=== PATIENT | female | born 1950 | race American Indian/Alaskan Native ===

== ENCOUNTER 2016-06-25 10:25 | Emergency (ER) | payer MEDICARE ==
[2016-06-25 10:53] VITALS: BP 100/54
[2016-06-25] MEDS ORDERED: DUONEB 0.5 MG-3 MG/3 ML SOLN IH ONE (11:46)
--- NOTE | 2016-06-25 11:49 | Emergency Department Report ---
Chief Complaint: Adult Asthma Stated Complaint: DORA Time Seen by Provider: 06/25/16 11:45 - HPI History of Present Illness: 66-year-old female comes in reporting she needs a breathing treatment. Denies any nausea vomiting fever chills. She has a past medical history of asthma - Exam Vital Signs: Vital Signs 06/25/16 10:49 Temperature 98.4 F Pulse Rate 91 H Respiratory 22 Rate Blood Pressure 100/54 O2 Sat by Pulse 97 Oximetry Physical Exam: Patient alert and oriented 3 respiratory expiratory wheezes throughout. MSE screening note: Focused history and physical exam performed. Due to findings the following was ordered: He been evaluated for order a DuoNeb respiratory care. Patient be evaluated in fast track. ED Disposition for MSE Condition: Stable
== END 2016-06-25 14:13 | disposition left against medical advice (07) ==
LOC: ED 10:25
DX: J45.909 Unspecified asthma, uncomplicated (principal); Z53.21 Procedure and treatment not carried out due to patient leaving prior to being seen by health care provider
CPT/HCPCS: 94640

== ENCOUNTER 2016-06-26 12:36 | Inpatient (IN) | payer MEDICARE, OTHER ==
--- NOTE | 2016-06-26 13:24 | XRay Report ---
Single view chest: Compared to 10/30/15. History: Shortness of breath. Findings: Cardiomegaly. Trachea is midline. Mild pulmonary vascular congestion with airspace opacities left perihilar area, left lower lobe and right lower lobe. No pleural effusion. Impression: Pulmonary edema or bilateral pneumonia.
[2016-06-26 13:31] LABS: Basophils % (Auto) 0.4 % (0.0-1.8); Hematocrit 29.8 % (30.3-42.9); Hemoglobin 9.7 gm/dl (10.1-14.3); Mean Corpuscular HGB Conc 33 % (30-34); Mean Corpuscular Hemoglobin 28 pg (28-32); Mean Corpuscular Volume 85 fl (79-97); Platelet Count 316 K/mm3 (140-440); Red Cell Distribution Width 16.2 % (13.2-15.2); White Blood Count 15.2 K/mm3 (4.5-11.0)
--- NOTE | 2016-06-26 14:00 | Emergency Department Report ---
HPI - General Chief Complaint: Dyspnea/Respdistress Time Seen by Provider: 06/26/16 13:40 - HPI HPI: Room 19 The patient is a 66-year-old female presenting with a chief complaint of shortness of breath. The patient appeared lethargic and is unable to provide history. Per staff at the large the patient was reported to have difficulty breathing for the past 2 days. The patient was found to be lethargic and had a room air sat of 70% per EMS. The patient was administered albuterol, given aspirin and placed on BiPAP from EMS. In the ED the patient does not provide a history because she keeps falling asleep prior to transfer. Patient will awaken briefly with tactile stimuli but then trails off and goes back to sleep Location: Mental status, lungs Duration: [see above] Quality: Shortness of breath Severity: [see above] Modifying factors: [see above] Context: [see above] Mode of transportation: [not driving] ED Past Medical Hx - Past Medical History Hx Hypertension: Yes Hx GERD: Yes Hx Psychiatric Treatment: Yes (bipolar / DEPRESSION) Hx Asthma: Yes (? Bronchitis/? Asthma per patient) Hx COPD: Yes (no home O2) Additional medical history: fibromyalgia. HIGH CHOLESTEROL - Surgical History Past Surgical History?: No Additional Surgical History: back surgery 3 yrs ago , neck surgery. TONSILLECTOMY - Social History Smoking Status: Unknown if ever smoked Substance Use Type: None - Medications Home Medications: Home Medications Medication Instructions Recorded Confirmed Last Taken Type Gabapentin 300 mg PO QDAY 03/04/14 06/26/16 Unknown History Albuterol [Proventil] 2 mg PO TID 11/05/14 06/26/16 Unknown History Gabapentin [Neurontin] 100 mg PO Q8H 11/05/14 06/26/16 Unknown History Ipratropium/Albuterol Sulfate 1 spray IH QID 11/05/14 06/26/16 Unknown History [Combivent Respimat] Metoprolol [Lopressor] 25 mg PO BID 11/05/14 06/26/16 Unknown History Rosuvastatin (Nf) [Crestor] 5 mg PO QHS 11/05/14 06/26/16 Unknown History Carvedilol [Coreg] 25 mg PO BID 07/08/15 06/26/16 Unknown History ALBUTEROL Inhaler [ProAir HFA 2 puff IH QID PRN #1 inhalation 10/25/15 06/26/16 Unknown Rx Inhaler] Esomeprazole Magnesium [NexIUM] 40 mg PO QDAY 10/25/15 06/26/16 Unknown History FLUoxetine [PROzac] 20 mg PO QDAY 10/25/15 06/26/16 Unknown History QUEtiapine [SEROquel] 200 mg PO QHS 10/25/15 06/26/16 Unknown History amLODIPine [Norvasc] 10 mg PO DAILY 10/25/15 06/26/16 Unknown History cloNIDine [Catapres] 0.1 mg PO QHS 10/25/15 06/26/16 Unknown History lamoTRIgine [LaMICtal] 25 mg PO BID 10/25/15 06/26/16 Unknown History predniSONE [Deltasone] 3 tab PO QDAY #15 tab 10/25/15 06/26/16 Unknown Rx ALBUTEROL Inhaler [ProAir HFA 2 puff IH QID PRN #1 inhalation 10/30/15 06/26/16 Unknown Rx Inhaler] ED Review of Systems ROS: Stated complaint: DORA Other details as noted in HPI Comment: Unobtainable due to pts medical conditions Physical Exam - Physical Exam Vital Signs: Vital Signs 06/26/16 06/26/16 12:42 13:24 Temperature 97.5 F L Pulse Rate 81 87 Respiratory 22 19 Rate Blood Pressure 89/64 104/81 [Left] O2 Sat by Pulse 95 96 Oximetry Physical Exam: GENERAL: The patient is well-developed well-nourished female sleeping on stretcher receiving BiPAP not appear to be in acute distress. [] HEENT: Normocephalic. Atraumatic. Extraocular motions are intact. NECK: Supple. Trachea midline CHEST/LUNGS: There is no respiratory distress noted. HEART/CARDIOVASCULAR: Regular. There is no tachycardia. There is no gallop rub or murmur. ABDOMEN: Abdomen is soft, nontender. Patient has normal bowel sounds. There is no abdominal distention. SKIN: There is no rash. There is 1+ bilateral lower extremity pitting edema. There is no diaphoresis. NEURO: The patient is asleep but awakens briefly to tactile stimuli. Patient falls back to sleep immediately without stimuli MUSCULOSKELETAL: There is no evidence of acute injury. ED Course Vital Signs 06/26/16 06/26/16 12:42 13:24 Temperature 97.5 F L Pulse Rate 81 87 Respiratory 22 19 Rate Blood Pressure 89/64 104/81 [Left] O2 Sat by Pulse 95 96 Oximetry ED Medical Decision Making - Lab Data Result diagrams: 06/26/16 13:16 06/26/16 13:16 Laboratory Tests 06/26/16 06/26/16 06/26/16 13:16 13:16 13:16 WBC 15.2 H RBC 3.50 L Hgb 9.7 L Hct 29.8 L MCV 85 MCH 28 MCHC 33 RDW 16.2 H Plt Count 316 Lymph % (Auto) 12.7 L [place] % (Auto) 5.4 Eos % (Auto) 2.0 Baso % (Auto) 0.4 Lymph # 1.9 [place] # 0.8 Eos # 0.3 Baso # 0.1 Seg Neutrophils % 79.5 H Seg Neutrophils # 12.1 H POC ABG pH POC ABG pCO2 POC ABG pO2 POC ABG HCO3 POC ABG Total CO2 POC ABG O2 Sat POC ABG Base Excess FiO2 Sodium 139 Potassium 4.1 Chloride 103.0 Carbon Dioxide 21 L Anion Gap 19 BUN 17 Creatinine 1.4 H Estimated GFR 46 BUN/Creatinine Ratio 12.14 Glucose 103 H Calcium 8.7 Troponin T < 0.010 NT-Pro-B Natriuret Pep 343.2 06/26/16 14:06 WBC RBC Hgb Hct MCV MCH MCHC RDW Plt Count Lymph % (Auto) [place] % (Auto) Eos % (Auto) Baso % (Auto) Lymph # [place] # Eos # Baso # Seg Neutrophils % Seg Neutrophils # POC ABG pH 7.346 L POC ABG pCO2 43.4 POC ABG pO2 71 L POC ABG HCO3 23.7 POC ABG Total CO2 25 POC ABG O2 Sat 93 POC ABG Base Excess -2 FiO2 50 Sodium Potassium Chloride Carbon Dioxide Anion Gap BUN Creatinine Estimated GFR BUN/Creatinine Ratio Glucose Calcium Troponin T NT-Pro-B Natriuret Pep - EKG Data -: EKG Interpreted by Me EKG shows normal: sinus rhythm Rate: normal - EKG Data When compared to previous EKG there are: previous EKG unavailable Interpretation: normal EKG - Radiology Data Radiology results: image reviewed (chest x-ray) interpreted by me: Chest x-ray bibasilar haziness. Left upper lobe haziness (CHF versus pneumonia) - Differential Diagnosis CHF, pneumonia Critical care attestation.: If time is entered above; I have spent that time in minutes in the direct care of this critically ill patient, excluding procedure time. ED Disposition Clinical Impression: Acute respiratory failure, Bilateral pneumonia, Shortness of breath, Leukocytosis Disposition: OP ADMITTED IP TO THIS HOSP Is pt being admited?: Yes Does the pt Need Aspirin: Yes Condition: Serious Instructions: Bacterial Pneumonia (ED) Referrals: PRIMARY CARE, [Primary Care Provider] - 3-5 Days Time of Disposition: 15:12 (hospitalist notified)
[2016-06-26 14:03] LABS: BUN/Creatinine Ratio 12.14; Blood Urea Nitrogen 17 mg/dL (7-17); Calcium 8.7 mg/dL (8.4-10.2); Carbon Dioxide 21 mmol/L (22-30); Glucose 103 mg/dL (65-100); Potassium 4.1 mmol/L (3.6-5.0); Sodium 139 mmol/L (137-145)
[2016-06-26 14:07] LABS: Anion Gap 19 mmol/L
[2016-06-26 15:04] LABS: ISTAT Base Excess -2; ISTAT HCO3 23.7; ISTAT PCO2 43.4 (35-45); ISTAT PH 7.346 (7.35-7.45); ISTAT PO2 71 (80-105); ISTAT SO2 93; ISTAT TCO2 25
[2016-06-26] MEDS ORDERED: DUONEB 0.5 MG-3 MG/3 ML SOLN IH ONE (16:11)
--- NOTE | 2016-06-26 18:12 | Consultation ---
History of Present Illness Consult date: 06/26/16 Reason for consult: dyspnea, cough, hypoxemia, pneumonia History of present illness: This is 66 year old female Obese came to the emergency room at [facility] with a complaint of shortness of breath for 2 days.Patient lethergic and O2 satuaration running in low 70,s.Patient unable to give much history. Patient placed on BIPAP. Both respiratory and mental status slightly improved. Patient easily arousable.Patient given aerosol treatments and admitted to the Telemetry.Patient has history of Asthma, hypertension, GERD,Hypercholesteremia, fibromyalgia and BIpolar.Patient surgical history, Back surgery,Neck surgery and Tonsillectomy. Allergic to IVP Dye and Lisonipril.Patients smoking history, alcohol history, work history is not known at this time. Patient presently resting on BIPAP. Hemodynamically stable. Past History Past Medical History: GERD, hypertension, hyperlipidemia, other (Asthma) Past Surgical History: tonsillectomy, Other (Back and neck surgery.) Medications and Allergies Allergies Allergy/AdvReac Type Severity Reaction Status Date / Time Iodinated Contrast Media - Allergy Swelling Verified 06/25/16 10:47 IV Dye lisinopril Allergy Angioedema Verified 06/25/16 10:47 Home Medications Medication Instructions Recorded Confirmed Last Taken Type Gabapentin 300 mg PO QDAY 03/04/14 06/26/16 Unknown History Albuterol [Proventil] 2 mg PO TID 11/05/14 06/26/16 Unknown History Gabapentin [Neurontin] 100 mg PO Q8H 11/05/14 06/26/16 Unknown History Ipratropium/Albuterol Sulfate 1 spray IH QID 11/05/14 06/26/16 Unknown History [Combivent Respimat] Metoprolol [Lopressor] 25 mg PO BID 11/05/14 06/26/16 Unknown History Rosuvastatin (Nf) [Crestor] 5 mg PO QHS 11/05/14 06/26/16 Unknown History Carvedilol [Coreg] 25 mg PO BID 07/08/15 06/26/16 Unknown History ALBUTEROL Inhaler [ProAir HFA 2 puff IH QID PRN #1 inhalation 10/25/15 06/26/16 Unknown Rx Inhaler] Esomeprazole Magnesium [NexIUM] 40 mg PO QDAY 10/25/15 06/26/16 Unknown History FLUoxetine [PROzac] 20 mg PO QDAY 10/25/15 06/26/16 Unknown History QUEtiapine [SEROquel] 200 mg PO QHS 10/25/15 06/26/16 Unknown History amLODIPine [Norvasc] 10 mg PO DAILY 10/25/15 06/26/16 Unknown History cloNIDine [Catapres] 0.1 mg PO QHS 10/25/15 06/26/16 Unknown History lamoTRIgine [LaMICtal] 25 mg PO BID 10/25/15 06/26/16 Unknown History predniSONE [Deltasone] 3 tab PO QDAY #15 tab 10/25/15 06/26/16 Unknown Rx ALBUTEROL Inhaler [ProAir HFA 2 puff IH QID PRN #1 inhalation 10/30/15 06/26/16 Unknown Rx Inhaler] Review of Systems All systems: negative Physical Examination Vital signs: Vital Signs Temp Pulse Resp BP Pulse Ox 97.5 F L 81 22 89/64 95 06/26/16 12:42 06/26/16 12:42 06/26/16 12:42 06/26/16 12:42 06/26/16 12:42 General appearance: no acute distress, lethargic, other (Resting on BIPAP.) Eyes: non-icteric ENT: oropharynx moist Neck: supple, no JVD Ascultation: Bilateral: diminished breath sounds Cardiovascular: regular rate and rhythm Gastrointestinal: normoactive bowel sounds, soft, non-tender Integumentary: normal Extremities: no cyanosis, no edema Musculoskeletal: no deformities Gait: other (Can not assess at this time.) non-focal exam, pupils equal and round, CN II-XII normal depressed Results - Laboratory Findings CBC and BMP: 06/26/16 13:16 06/26/16 13:16 ABG POC ABG pH 7.346 (7.35-7.45) L 06/26/16 14:06 POC ABG pCO2 43.4 (35-45) 06/26/16 14:06 POC ABG pO2 71 (80-105) L 06/26/16 14:06 POC ABG HCO3 23.7 06/26/16 14:06 POC ABG Total CO2 25 06/26/16 14:06 POC ABG O2 Sat 93 06/26/16 14:06 - Diagnostic Findings Chest x-ray: report reviewed (pulmonary edema and bilateral pneumonia), image reviewed Assessment and Plan This is 66 year old female Obese came to the emergency room at [facility] with a complaint of shortness of breath for 2 days.Patient lethergic and O2 satuaration running in low 70,s.Patient unable to give much history. Patient placed on BIPAP. Both respiratory and mental status slightly improved. Patient easily arousable.Patient given aerosol treatments and admitted to the Telemetry.Patient has history of Asthma, hypertension, GERD,Hypercholesteremia, fibromyalgia and BIpolar.Patient surgical history, Back surgery,Neck surgery and Tonsillectomy. Allergic to IVP Dye and Lisonipril.Patients smoking history, alcohol history, work history is not known at this time. Patient presently resting on BIPAP. Hemodynamically stable. - Patient Problems (1) Acute respiratory failure Current Visit: Yes Status: Acute Plan to address problem: Continue BIPAP Albuterol/atrovent aerosol treatments q 6 hours. Continue solumedral. Recommend s/c Lovenox. Continue Protonix. (2) Bilateral pneumonia Current Visit: Yes Status: Acute Plan to address problem: Continue Zosyn. (3) Bronchial asthma Current Visit: Yes Status: Acute Plan to address problem: Albuterol/atrovent aerosol treatments q 6 hours. Continue solumedral. (4) Obesity (BMI 30-39.9) Current Visit: Yes Status: Acute Plan to address problem: Nutritonal consultation for weight reduction diet. (5) Sleep apnea Current Visit: Yes Status: Acute Plan to address problem: Continue BIPAP. Sleep study as outpatient.
[2016-06-26] MEDS ORDERED: PROAIR IH PRN (18:53)
[2016-06-26] MEDS ORDERED: TYLENOL PO PRN (18:55)
[2016-06-26] MEDS ORDERED: DULCOLAX PR PRN (18:55)
[2016-06-26] MEDS ORDERED: AMBIEN PO PRN (18:55)
[2016-06-26] MEDS ORDERED: MILK OF MAGNESIA PO PRN (18:55)
[2016-06-26] MEDS ORDERED: DILAUDID IV PRN (18:55)
[2016-06-26] MEDS ORDERED: ZOFRAN IV PRN (18:55)
[2016-06-26] MEDS ORDERED: DUONEB 0.5 MG-3 MG/3 ML SOLN IH PRN (18:59)
[2016-06-26] MEDS ORDERED: PROVENTIL IH PRN ×2 (19:21→19:33)
[2016-06-26] MEDS: DUONEB 0.5 MG-3 MG/3 ML SOLN IH SCH (20:45)
[2016-06-26] MEDS ORDERED: PEPCID IV SCH (22:00)
[2016-06-26] MEDS ORDERED: NON-FORMULARY (Ipratropium/Albuterol Sulfate [Combivent Respimat] 1 SPRAY) IH SCH (22:00)
[2016-06-26] MEDS: ZOSYN/NS 4.5GM/100ML 100 ML IV SCH (22:44)
[2016-06-26] MEDS: D5NS 1,000 ML IV SCH (22:44)
[2016-06-26] MEDS: ASPIRIN PO SCH (22:47)
[2016-06-26] MEDS: PROzac PO SCH (22:47)
[2016-06-26] MEDS: NEURONTIN PO SCH (22:47)
[2016-06-26] MEDS: LaMICtal PO SCH (22:47)
[2016-06-27] MEDS: DUONEB 0.5 MG-3 MG/3 ML SOLN IH SCH ×4 (03:05→20:02)
[2016-06-27] MEDS: NEURONTIN PO SCH ×2 (06:49→10:52)
[2016-06-27] MEDS: ZOSYN/NS 4.5GM/100ML 100 ML IV SCH ×3 (06:52→21:49)
[2016-06-27 07:20] LABS: Albumin 3.6 g/dL (3.9-5); BUN/Creatinine Ratio 14.61; Bilirubin,Total 0.2 mg/dL (0.1-1.2); Calcium 8.9 mg/dL (8.4-10.2); Chloride 103.6 mmol/L (98-107); Total Protein 7.3 g/dL (6.3-8.2)
[2016-06-27 07:24] LABS: Potassium 4.5 mmol/L (3.6-5.0)
[2016-06-27 07:46] LABS: Hemoglobin 9.3 gm/dl (10.1-14.3); Mean Corpuscular HGB Conc 31 % (30-34); Mean Corpuscular Hemoglobin 27 pg (28-32); Mean Corpuscular Volume 85 fl (79-97); Platelet Count 337 K/mm3 (140-440); Red Blood Count 3.53 M/mm3 (3.65-5.03); Red Cell Distribution Width 16.1 % (13.2-15.2); White Blood Count 16.1 K/mm3 (4.5-11.0)
--- NOTE | 2016-06-27 08:22 | Event Note ---
Date: 06/26/16 see in reports
[2016-06-27 08:37] LABS: Basophils % (Manual) 0 % (0.0-1.8); Blastocytes % (Manual) 0 %; Eosinophils % (Manual) 0 % (0.0-4.3); Total Cells Counted Percent 0
[2016-06-27 08:38] LABS: Anisocytosis Few; Diff Status Complete
--- NOTE | 2016-06-27 09:42 | History and Physical Report ---
CHIEF COMPLAINT: Increasing shortness of breath of 2 days' duration. HISTORY OF PRESENT ILLNESS: The patient is a 66-year-old female who presents with increasing shortness of breath for two days. The patient was found to be lethargic with saturations of 70% at home. The patient was administered albuterol and was placed on BiPAP by EMS. In the ER, the patient is lethargic and falling asleep despite of the BiPAP. PAST MEDICAL HISTORY: Significant for hypertension, COPD on home oxygen, depression, bronchitis, asthma, fibromyalgia, hyperlipidemia. PAST SURGICAL HISTORY: Back surgery 3 years ago, neck surgery, and tonsillectomy. SOCIAL HISTORY: He used to be a smoker in the past. CURRENT MEDICATIONS: Gabapentin 300 mg once a day, albuterol 2 mg t.i.d., DuoNebs four times a day, Combivent Respimat 1 spray q.i.d. p.r.n., Crestor 5 mg daily, Prozac 20 mg p.o. daily, Seroquel 200 mg p.o. at bedtime, amlodipine 10 mg p.o. daily, clonidine 0.1 p.o. at bedtime, Lamictal 25 mg p.o. b.i.d., prednisone tapering dose, albuterol inhaler 2 puffs q.i.d. FAMILY HISTORY: Significant for hypertension. REVIEW OF SYSTEMS: CONSTITUTIONAL: No fever, no chills. No weight loss, no weight gain. HEENT: No sore throat. No postnasal drip. CARDIOVASCULAR AND RESPIRATORY: Increasing shortness of breath, wheezing, and lethargy present. Low saturations present. GASTROINTESTINAL: No nausea, no vomiting, no diarrhea. GENITOURINARY: No dysuria, no flank pain. MUSCULOSKELETAL: No joint pains. CENTRAL NERVOUS SYSTEM: No syncope, no seizures, altered sensorium, lethargic. SKIN: No rashes. PSYCHIATRIC: Depressed. A 14-point review of systems otherwise negative other than increasing shortness of breath and lethargy. PHYSICAL EXAMINATION: GENERAL: Elderly female, on BiPAP machine, alert at the time of my examination. VITAL SIGNS: Blood pressure is 89/64 and repeat was 104/81, temperature is 97.5, pulse is 81, respirations 22. HEENT: Unremarkable. Pupils equal and reactive. NECK: Supple, no lymphadenopathy, no thyromegaly. Accessory muscles of respiration are prominent. LUNGS: Bilateral rhonchi present. Decreased air entry. CARDIOVASCULAR: S1, S2 heard. No gallop, no murmur, no rub. Apical impulse in the left fifth intercostal space and midclavicular line. ABDOMEN: Soft and benign. No hepatosplenomegaly. No guarding, no rigidity. Hernial orifices are normal. EXTREMITIES: Good pedal pulses. No pedal edema. CENTRAL NERVOUS SYSTEM: Lethargic, alert, and oriented. NEUROLOGIC: No focal deficits. SKIN: Normal. LABORATORY DATA: White count is 15,200, H and H is 9.7 and 29.2, BUN and creatinine 17 and 1.4. BNP is 343. ABG 7.346, pCO2 of 43, bicarbonate of 23, pO2 of 71, FiO2 of 50. ASSESSMENT AND PLAN: 1. Acute respiratory failure, on BiPAP machine. DuoNebs q.6 round the clock q.3 p.r.n., IV Solu-Medrol at 125 q.8, and IV Levaquin 750 mg q.24. 2. Hypotension, better with the IV fluids, continue IV fluids. 3. Hypertension, Coreg for the time being. 4. Hyperlipidemia. Continue Crestor 5 mg p.o. daily. 5. Peripheral neuropathy, continue gabapentin 100 mg p.o. q.8. 6. Depression. Continue fluoxetine and Seroquel. 7. Deep venous thrombosis prophylaxis, Lovenox 40 mg subcutaneous daily. In summary, the patient has acute respiratory failure, COPD exacerbation, and hypertension, now hypotension. PROGNOSIS: Fair. We will admit to telemetry. JOB# [id number] JARVIS/WILLIAM LOYA
--- NOTE | 2016-06-27 09:46 | Admit Criteria Form ---
Admission Criteria Documentation: RESPIRATORY FAILURE GRG Clinical Indications for Admission to Inpatient Care (Place 'X' for any and all applicable criteria): Hospital admission is needed for appropriate care of the patient because of acute respiratory failure or insufficiency as indicated by ANY ONE of the following(1)(2)(3)(4)(5)(6)(7)(8): [X]I. Mechanical ventilation needed (acute invasive or noninvasive) [X]II. Severe ventilation deficit as indicated by ANY ONE of the following (9) [X ]a) Respiratory acidosis (pH less than 7.32 and partial pressure of carbon dioxide greater than 40 mm Hg (5.3 kPa)) [ ]b) Partial pressure of carbon dioxide greater than 44 mm Hg (5.9 kPa ) (new) [ ]c) Airflow measurements less than 25% of predicted (eg, peak expiratory flow rate less than 100 L/minute) [ ]d) Forced vital capacity less than 15 mL/kg of ideal body weight, or 50% decrease in vital capacity from baseline [ ]III. Noncardiac pulmonary edema not resolving with rapid emergency treatment (8) [X]IV. Severe respiratory distress as indicated by ANY ONE of the following: [ ]a) Severe tachypnea (respiratory rate greater than 30, greater than 45 for 6-month-old, greater than 60 for ) [X ]b) Severe hypoxemia (partial pressure of oxygen less than 50 mm Hg (6.7 kPa) on greater than 50% oxygen or partial pressure of oxygen to FIO2 ratio less than 200) [X ]c) Mental status deterioration from respiratory disease [ ]V. Airway obstruction or inadequate protection [A](10)(11) The original [employer] content created by [employer] has been revised. The portions of the content which have been revised are identified through the use of italic text or in bold, and [employer] has neither reviewed nor approved the modified material. All other unmodified content is copyright [employer]. Please see references footnoted in the original [employer] edition 2016 Admission Criteria Met: Yes
[2016-06-27] MEDS ORDERED: NON-FORMULARY (Esomeprazole Magnesium [Nexium] 40 MG) PO SCH (10:00)
--- NOTE | 2016-06-27 10:02 | Progress Note ---
Assessment and Plan (1) Acute respiratory failure Current Visit: Yes Status: Acute Plan to address problem: - Continue BIPAP (But qhs & prn daytime now) - Albuterol/atrovent aerosol treatments q 6 hours. - Continue solumedrol. - oxygen therapy to keep sats > 92% (2) Bilateral pneumonia Current Visit: Yes Status: Acute Plan to address problem: - Continue Zosyn. (3) Bronchial asthma Current Visit: Yes Status: Acute Plan to address problem: - Albuterol/atrovent aerosol treatments q 6 hours. - Continue solumedrol. (4) Obesity (BMI 30-39.9) Current Visit: Yes Status: Acute Plan to address problem: - Nutritonal consultation for weight reduction diet. (5) Sleep apnea Current Visit: Yes Status: Acute Plan to address problem: - Continue BIPAP qhs/while asleep. - Sleep study as outpatient. Subjective Date of service: 06/27/16 Principal diagnosis: Acute Hypoxemic Resp Failure Interval history: Seen and examined at bedside; 24 hour events reviewed; nursing and respiratory care staff consulted; no adverse overnight events reported to me; resting in bed ; doing better; tolerated BIPAP; no emesis or overt aspiration Objective Vital Signs - 12hr 06/27/16 06/27/16 06/27/16 00:27 03:46 05:15 Temperature 97.6 F 98.2 F Pulse Rate 86 Pulse Rate [ 98 H 88 Radial] Pulse Rate [ Throughout] Respiratory 20 18 Rate Respiratory Rate [ Throughout] Blood Pressure 113/61 131/89 [Left Arm] O2 Sat by Pulse 98 100 Oximetry 06/27/16 06/27/16 06/27/16 08:20 08:24 08:43 Temperature 97.4 F L Pulse Rate 101 H Pulse Rate [ 95 H Radial] Pulse Rate [ 101 H Throughout] Respiratory 16 20 Rate Respiratory 16 Rate [ Throughout] Blood Pressure 159/87 [Left Arm] O2 Sat by Pulse 100 99 Oximetry Constitutional: no acute distress, lethargic, other (Resting on BIPAP.) Eyes: non-icteric ENT: oropharynx moist Neck: supple, no JVD Ascultation: Bilateral: diminished breath sounds Cardiovascular: regular rate and rhythm Gastrointestinal: normoactive bowel sounds, soft, non-tender, non-distended Integumentary: normal Extremities: no cyanosis, no edema, pulses normal Neurologic: non-focal exam, pupils equal and round, CN II-XII normal, motor strength normal and Psychiatric: mood appropriate, affect normal CBC and BMP: 06/28/16 08:55 06/29/16 07:14 ABG, PT/INR, D-dimer: ABG POC ABG pH 7.346 (7.35-7.45) L 06/26/16 14:06 POC ABG pCO2 43.4 (35-45) 06/26/16 14:06 POC ABG pO2 71 (80-105) L 06/26/16 14:06 POC ABG HCO3 23.7 06/26/16 14:06 POC ABG Total CO2 25 06/26/16 14:06 POC ABG O2 Sat 93 06/26/16 14:06 Abnormal lab findings: Abnormal Labs 06/27/16 06/27/16 06:15 06:15 WBC 16.1 H RBC 3.53 L Hgb 9.3 L Hct 30.0 L MCH 27 L RDW 16.1 H Seg Neuts % (Manual) 85.0 H Lymphocytes % (Manual) 2.0 L Seg Neutrophils # Man 13.7 H Lymphocytes # (Manual) 0.3 L Carbon Dioxide 21 L BUN 19 H Creatinine 1.3 H Glucose 151 H Albumin 3.6 L
[2016-06-27] MEDS: PROTONIX PO SCH (10:52)
[2016-06-27] MEDS: ASPIRIN PO SCH (10:52)
[2016-06-27] MEDS: PROzac PO SCH (10:52)
[2016-06-27] MEDS: LaMICtal PO SCH ×2 (10:52→21:49)
[2016-06-27] MEDS: LOVENOX SUB-Q SCH (10:53)
[2016-06-27] MEDS: D5NS 1,000 ML IV SCH (16:45)
--- NOTE | 2016-06-27 16:47 | Progress Note ---
Assessment and Plan Assessment and plan: Acute hypoxic respiratory failure * Continue BIPAP * Albuterol/atrovent aerosol treatments q 6 hours. * Continue solumedral. Bilateral community-acquired pneumonia * Continue Zosyn. Acute exacerbation of severe persistent Bronchial asthma * Albuterol/atrovent aerosol treatments q 6 hours. * Continue solumedral. Obesity (BMI 30-39.9) * Nutritonal consultation for weight reduction diet. Sleep apnea, likely * Need outpatient sleep study h/o depression * continue prozac History Interval history: Patient seen and examined. Medical records and medication list reviewed. No acute event overnight noted by the RN. Patient currently on BiPAP Hospitalist Physical - Physical exam Narrative exam: GENERAL: obese AAF lying on bed with BIPAP. appears sleepy HEENT: Normocephalic. Atraumatic. No conjunctival congestion or icterus. Patient has dry mucous membranes. NECK: Supple. Trachea midline. CHEST/LUNGS: diminished BS auscultated bilaterally, on BiPAP. No wheezes crackles or rhonchi. HEART/CARDIOVASCULAR: Regular in rate and rhythm. S1 and S2 positive. ABDOMEN: Abdomen is soft, nontender. Patient has normal bowel sounds. SKIN: There is no rash. Warm and dry. NEURO: No focal motor deficit. MUSCULOSKELETAL: No joint effusion or tenderness. EXTRIMITY: No edema, no cyanosis or clubbing. - Constitutional Vitals: Temp Pulse Resp BP Pulse Ox 98.2 F 88 16 146/73 98 06/27/16 14:01 06/27/16 14:04 06/27/16 14:04 06/27/16 14:01 06/27/16 14:01 Results - Labs CBC & Chem 7: 06/28/16 08:55 06/28/16 08:55 Labs: Laboratory Last Values WBC 16.1 K/mm3 (4.5-11.0) H 06/27/16 06:15 RBC 3.53 M/mm3 (3.65-5.03) L 06/27/16 06:15 Hgb 9.3 gm/dl (10.1-14.3) L 06/27/16 06:15 Hct 30.0 % (30.3-42.9) L 06/27/16 06:15 MCV 85 fl (79-97) 06/27/16 06:15 MCH 27 pg (28-32) L 06/27/16 06:15 MCHC 31 % (30-34) 06/27/16 06:15 RDW 16.1 % (13.2-15.2) H 06/27/16 06:15 Plt Count 337 K/mm3 (140-440) 06/27/16 06:15 Lymph % (Auto) Sales & Service Associate 06/27/16 06:15 [place] % (Auto) Sales & Service Associate 06/27/16 06:15 Eos % (Auto) Sales & Service Associate 06/27/16 06:15 Baso % (Auto) Sales & Service Associate 06/27/16 06:15 Lymph # Sales & Service Associate 06/27/16 06:15 [place] # Sales & Service Associate 06/27/16 06:15 Eos # Sales & Service Associate 06/27/16 06:15 Baso # Sales & Service Associate 06/27/16 06:15 Add Manual Diff Complete 06/27/16 06:15 Total Counted 100 06/27/16 06:15 Seg Neutrophils % Sales & Service Associate 06/27/16 06:15 Seg Neuts % (Manual) 85.0 % (40.0-70.0) H 06/27/16 06:15 Band Neutrophils % 13.0 % 06/27/16 06:15 Lymphocytes % (Manual) 2.0 % (13.4-35.0) L 06/27/16 06:15 Reactive Lymphs % (Man) 0 % 06/27/16 06:15 Monocytes % (Manual) 0 % (0.0-7.3) 06/27/16 06:15 Eosinophils % (Manual) 0 % (0.0-4.3) 06/27/16 06:15 Basophils % (Manual) 0 % (0.0-1.8) 06/27/16 06:15 Metamyelocytes % 0 % 06/27/16 06:15 Myelocytes % 0 % 06/27/16 06:15 Promyelocytes % 0 % 06/27/16 06:15 Blast Cells % 0 % 06/27/16 06:15 Nucleated RBC % Not Reportable 06/27/16 06:15 Seg Neutrophils # Sales & Service Associate 06/27/16 06:15 Seg Neutrophils # Man 13.7 K/mm3 (1.8-7.7) H 06/27/16 06:15 Band Neutrophils # 2.1 K/mm3 06/27/16 06:15 Lymphocytes # (Manual) 0.3 K/mm3 (1.2-5.4) L 06/27/16 06:15 Abs React Lymphs (Man) 0.0 K/mm3 06/27/16 06:15 Monocytes # (Manual) 0.0 K/mm3 (0.0-0.8) 06/27/16 06:15 Eosinophils # (Manual) 0.0 K/mm3 (0.0-0.4) 06/27/16 06:15 Basophils # (Manual) 0.0 K/mm3 (0.0-0.1) 06/27/16 06:15 Metamyelocytes # 0.0 K/mm3 06/27/16 06:15 Myelocytes # 0.0 K/mm3 06/27/16 06:15 Promyelocytes # 0.0 K/mm3 06/27/16 06:15 Blast Cells # 0.0 K/mm3 06/27/16 06:15 WBC Morphology Not Reportable 06/27/16 06:15 Hypersegmented Neuts Not Reportable 06/27/16 06:15 Hyposegmented Neuts Not Reportable 06/27/16 06:15 Hypogranular Neuts Not Reportable 06/27/16 06:15 Smudge Cells Not Reportable 06/27/16 06:15 Toxic Granulation Not Reportable 06/27/16 06:15 Toxic Vacuolation Not Reportable 06/27/16 06:15 Dohle Bodies Not Reportable 06/27/16 06:15 Pelger-Huet Anomaly Not Reportable 06/27/16 06:15 Gordon Rods Not Reportable 06/27/16 06:15 Platelet Estimate Not Reportable 06/27/16 06:15 Clumped Platelets Not Reportable 06/27/16 06:15 Plt Clumps, EDTA Not Reportable 06/27/16 06:15 Large Platelets Not Reportable 06/27/16 06:15 Giant Platelets Not Reportable 06/27/16 06:15 Platelet Satelliting Not Reportable 06/27/16 06:15 Plt Morphology Comment Not Reportable 06/27/16 06:15 RBC Morphology Not Reportable 06/27/16 06:15 Dimorphic RBCs Not Reportable 06/27/16 06:15 Polychromasia Not Reportable 06/27/16 06:15 Hypochromasia Not Reportable 06/27/16 06:15 Poikilocytosis Not Reportable 06/27/16 06:15 Anisocytosis Few 06/27/16 06:15 Microcytosis Not Reportable 06/27/16 06:15 Macrocytosis Not Reportable 06/27/16 06:15 Spherocytes Not Reportable 06/27/16 06:15 Pappenheimer Bodies Not Reportable 06/27/16 06:15 Sickle Cells Not Reportable 06/27/16 06:15 Target Cells Not Reportable 06/27/16 06:15 Tear Drop Cells Not Reportable 06/27/16 06:15 Ovalocytes Not Reportable 06/27/16 06:15 Helmet Cells Not Reportable 06/27/16 06:15 Uri[place] Bodies Not Reportable 06/27/16 06:15 [place] Rings Not Reportable 06/27/16 06:15 [place] Cells Not Reportable 06/27/16 06:15 Bite Cells Not Reportable 06/27/16 06:15 Crenated Cell Not Reportable 06/27/16 06:15 Elliptocytes Not Reportable 06/27/16 06:15 Acanthocytes (Spur) Not Reportable 06/27/16 06:15 Rouleaux Not Reportable 06/27/16 06:15 Hemoglobin C Crystals Not Reportable 06/27/16 06:15 Schistocytes Not Reportable 06/27/16 06:15 Malaria parasites Not Reportable 06/27/16 06:15 Mahesh Bodies Not Reportable 06/27/16 06:15 Hem Pathologist Commnt No 06/27/16 06:15 POC ABG pH 7.346 (7.35-7.45) L 06/26/16 14:06 POC ABG pCO2 43.4 (35-45) 06/26/16 14:06 POC ABG pO2 71 (80-105) L 06/26/16 14:06 POC ABG HCO3 23.7 06/26/16 14:06 POC ABG Total CO2 25 06/26/16 14:06 POC ABG O2 Sat 93 06/26/16 14:06 POC ABG Base Excess -2 06/26/16 14:06 FiO2 50 % 06/26/16 14:06 Sodium 142 mmol/L (137-145) 06/27/16 06:15 Potassium 4.5 mmol/L (3.6-5.0) 06/27/16 06:15 Chloride 103.6 mmol/L (98-107) 06/27/16 06:15 Carbon Dioxide 21 mmol/L (22-30) L 06/27/16 06:15 Anion Gap 22 mmol/L 06/27/16 06:15 BUN 19 mg/dL (7-17) H 06/27/16 06:15 Creatinine 1.3 mg/dL (0.7-1.2) H 06/27/16 06:15 Estimated GFR 50 ml/min 06/27/16 06:15 BUN/Creatinine Ratio 14.61 % 06/27/16 06:15 Glucose 151 mg/dL (65-100) H 06/27/16 06:15 Calcium 8.9 mg/dL (8.4-10.2) 06/27/16 06:15 Total Bilirubin 0.2 mg/dL (0.1-1.2) 06/27/16 06:15 AST 25 units/L (5-40) 06/27/16 06:15 ALT 15 units/L (7-56) 06/27/16 06:15 Alkaline Phosphatase 117 units/L (35-129) 06/27/16 06:15 Troponin T < 0.010 ng/mL (0.00-0.029) 06/26/16 13:16 NT-Pro-B Natriuret Pep 343.2 pg/mL (0-900) 06/26/16 13:16 Total Protein 7.3 g/dL (6.3-8.2) 06/27/16 06:15 Albumin 3.6 g/dL (3.9-5) L 06/27/16 06:15 Albumin/Globulin Ratio 1.0 % 06/27/16 06:15
[2016-06-28] MEDS: DUONEB 0.5 MG-3 MG/3 ML SOLN IH SCH ×5 (02:41→21:30)
[2016-06-28] MEDS: ZOSYN/NS 4.5GM/100ML 100 ML IV SCH ×3 (05:32→22:12)
[2016-06-28] MEDS: D5NS 1,000 ML IV SCH (06:25)
[2016-06-28 09:22] LABS: Hematocrit 30.9 % (30.3-42.9); Hemoglobin 9.8 gm/dl (10.1-14.3); Mean Corpuscular HGB Conc 32 % (30-34); Mean Corpuscular Hemoglobin 27 pg (28-32); Mean Corpuscular Volume 85 fl (79-97); Platelet Count 392 K/mm3 (140-440); Red Blood Count 3.62 M/mm3 (3.65-5.03); Red Cell Distribution Width 15.8 % (13.2-15.2); White Blood Count 19.2 K/mm3 (4.5-11.0)
[2016-06-28 09:38] LABS: Anion Gap 18 mmol/L; Blood Urea Nitrogen 14 mg/dL (7-17); Calcium 9.1 mg/dL (8.4-10.2); Carbon Dioxide 24 mmol/L (22-30); Chloride 108.1 mmol/L (98-107); Glucose 165 mg/dL (65-100); Potassium 4.4 mmol/L (3.6-5.0); Sodium 146 mmol/L (137-145)
--- NOTE | 2016-06-28 10:19 | Progress Note ---
Assessment and Plan (1) Acute respiratory failure Current Visit: Yes Status: Acute Plan to address problem: - Continue BIPAP (But qhs & prn daytime now) - Albuterol/atrovent aerosol treatments q 6 hours. - Continue solumedrol. - oxygen therapy to keep sats > 92% (2) Bilateral pneumonia Current Visit: Yes Status: Acute Plan to address problem: - Continue Zosyn. (3) Bronchial asthma Current Visit: Yes Status: Acute Plan to address problem: - Albuterol/atrovent aerosol treatments q 6 hours. - Continue solumedrol. (4) Obesity (BMI 30-39.9) Current Visit: Yes Status: Acute Plan to address problem: - Nutritonal consultation for weight reduction diet. (5) Sleep apnea Current Visit: Yes Status: Acute Plan to address problem: - Continue BIPAP qhs/while asleep. - Sleep study as outpatient Subjective Date of service: 06/28/16 Principal diagnosis: Acute Hypoxemic Resp Failure Interval history: Seen and examined at bedside; 24 hour events reviewed; nursing and respiratory care staff consulted; no adverse overnight events reported to me; feels better but still with LA Objective Vital Signs - 12hr 06/28/16 06/28/16 06/28/16 01:00 02:41 02:51 Temperature 98.1 F Pulse Rate [ 95 H 103 H Anterior Bilateral Throughout] Pulse Rate [ 95 H Radial] Respiratory 20 Rate Respiratory 20 20 Rate [Anterior Bilateral Throughout] Blood Pressure 136/85 [Right Arm] O2 Sat by Pulse 96 Oximetry 06/28/16 06/28/16 06/28/16 06:00 08:59 09:55 Temperature 98.3 F 98.2 F Pulse Rate [ Anterior Bilateral Throughout] Pulse Rate [ 94 H 99 H Radial] Respiratory 20 24 Rate Respiratory Rate [Anterior Bilateral Throughout] Blood Pressure 187/86 188/91 [Right Arm] O2 Sat by Pulse 98 96 100 Oximetry 06/28/16 06/28/16 06/28/16 09:59 10:00 10:08 Temperature Pulse Rate [ 101 H 95 H Anterior Bilateral Throughout] Pulse Rate [ Radial] Respiratory Rate Respiratory 18 18 Rate [Anterior Bilateral Throughout] Blood Pressure [Right Arm] O2 Sat by Pulse 100 Oximetry Constitutional: no acute distress, lethargic, other (Resting on BIPAP.) Eyes: non-icteric ENT: oropharynx moist Neck: supple, no JVD Ascultation: Bilateral: diminished breath sounds, rhonchi Cardiovascular: regular rate and rhythm Gastrointestinal: normoactive bowel sounds, soft, non-tender, non-distended Integumentary: normal Extremities: no cyanosis, no edema Neurologic: normal mental status, non-focal exam, pupils equal and round, CN II- XII normal Psychiatric: mood appropriate, affect normal CBC and BMP: 06/28/16 08:55 06/29/16 07:14 ABG, PT/INR, D-dimer: ABG POC ABG pH 7.346 (7.35-7.45) L 06/26/16 14:06 POC ABG pCO2 43.4 (35-45) 06/26/16 14:06 POC ABG pO2 71 (80-105) L 06/26/16 14:06 POC ABG HCO3 23.7 06/26/16 14:06 POC ABG Total CO2 25 06/26/16 14:06 POC ABG O2 Sat 93 06/26/16 14:06 Abnormal lab findings: Abnormal Labs 06/27/16 06/27/16 06/28/16 06:15 06:15 08:55 WBC 16.1 H 19.2 H RBC 3.53 L 3.62 L Hgb 9.3 L 9.8 L Hct 30.0 L MCH 27 L 27 L RDW 16.1 H 15.8 H Seg Neuts % (Manual) 85.0 H Lymphocytes % (Manual) 2.0 L Seg Neutrophils # Man 13.7 H Lymphocytes # (Manual) 0.3 L Sodium Chloride Carbon Dioxide 21 L BUN 19 H Creatinine 1.3 H Glucose 151 H Albumin 3.6 L 06/28/16 08:55 WBC RBC Hgb Hct MCH RDW Seg Neuts % (Manual) Lymphocytes % (Manual) Seg Neutrophils # Man Lymphocytes # (Manual) Sodium 146 H Chloride 108.1 H Carbon Dioxide BUN Creatinine Glucose 165 H Albumin
[2016-06-28] MEDS: NEURONTIN PO SCH (11:00)
[2016-06-28] MEDS: PROTONIX PO SCH (11:00)
[2016-06-28] MEDS: PROzac PO SCH (11:00)
[2016-06-28] MEDS: LOVENOX SUB-Q SCH (11:00)
[2016-06-28] MEDS: ASPIRIN PO SCH (11:00)
[2016-06-28] MEDS: LaMICtal PO SCH ×2 (11:00→22:12)
[2016-06-28] MEDS ORDERED: PROVENTIL IH PRN (12:00)
--- NOTE | 2016-06-28 16:50 | Progress Note ---
Assessment and Plan Assessment and plan: Acute hypoxic respiratory failure * Continue BIPAP prn * Albuterol/atrovent aerosol treatments q 6 hours. * Continue solumedral. Bilateral community-acquired pneumonia * Continue Zosyn. Acute exacerbation of severe persistent Bronchial asthma * Albuterol/atrovent aerosol treatments q 6 hours. * Continue solumedral. Obesity (BMI 30-39.9) * Nutritonal consultation for weight reduction diet. Sleep apnea, likely * Need outpatient sleep study TRACE * likely due to dehydration, improved with iv fluid * cont to monitor h/o depression * continue prozac hypertension, uncontrolled * cont amlodipine and coreg * as needed iv hydralazine History Interval history: Patient seen and examined. Medical records and medication list reviewed. No acute event overnight noted by the RN. Patient off bipap but cont to c/o exertional SOB Hospitalist Physical - Physical exam Narrative exam: GENERAL: obese AAF lying on bed without any acute distress HEENT: Normocephalic. Atraumatic. No conjunctival congestion or icterus. Patient has dry mucous membranes. NECK: Supple. Trachea midline. CHEST/LUNGS: diminished BS auscultated bilaterally. No wheezes crackles or rhonchi. HEART/CARDIOVASCULAR: Regular in rate and rhythm. S1 and S2 positive. ABDOMEN: Abdomen is soft, nontender. Patient has normal bowel sounds. SKIN: There is no rash. Warm and dry. NEURO: No focal motor deficit. MUSCULOSKELETAL: No joint effusion or tenderness. EXTRIMITY: No edema, no cyanosis or clubbing. - Constitutional Vitals: Temp Pulse Resp BP Pulse Ox 98.0 F 103 H 20 180/79 95 06/28/16 13:43 06/28/16 16:38 06/28/16 16:38 06/28/16 13:43 06/28/16 13:43 Results - Labs CBC & Chem 7: 06/28/16 08:55 06/29/16 07:14 Labs: Laboratory Last Values WBC 19.2 K/mm3 (4.5-11.0) H 06/28/16 08:55 RBC 3.62 M/mm3 (3.65-5.03) L 06/28/16 08:55 Hgb 9.8 gm/dl (10.1-14.3) L 06/28/16 08:55 Hct 30.9 % (30.3-42.9) 06/28/16 08:55 MCV 85 fl (79-97) 06/28/16 08:55 MCH 27 pg (28-32) L 06/28/16 08:55 MCHC 32 % (30-34) 06/28/16 08:55 RDW 15.8 % (13.2-15.2) H 06/28/16 08:55 Plt Count 392 K/mm3 (140-440) 06/28/16 08:55 Lymph % (Auto) Cardiopulmonary Technician And Eeg Tech 06/27/16 06:15 [place] % (Auto) Cardiopulmonary Technician And Eeg Tech 06/27/16 06:15 Eos % (Auto) Cardiopulmonary Technician And Eeg Tech 06/27/16 06:15 Baso % (Auto) Cardiopulmonary Technician And Eeg Tech 06/27/16 06:15 Lymph # Cardiopulmonary Technician And Eeg Tech 06/27/16 06:15 [place] # Cardiopulmonary Technician And Eeg Tech 06/27/16 06:15 Eos # Cardiopulmonary Technician And Eeg Tech 06/27/16 06:15 Baso # Cardiopulmonary Technician And Eeg Tech 06/27/16 06:15 Add Manual Diff Complete 06/27/16 06:15 Total Counted 100 06/27/16 06:15 Seg Neutrophils % Cardiopulmonary Technician And Eeg Tech 06/27/16 06:15 Seg Neuts % (Manual) 85.0 % (40.0-70.0) H 06/27/16 06:15 Band Neutrophils % 13.0 % 06/27/16 06:15 Lymphocytes % (Manual) 2.0 % (13.4-35.0) L 06/27/16 06:15 Reactive Lymphs % (Man) 0 % 06/27/16 06:15 Monocytes % (Manual) 0 % (0.0-7.3) 06/27/16 06:15 Eosinophils % (Manual) 0 % (0.0-4.3) 06/27/16 06:15 Basophils % (Manual) 0 % (0.0-1.8) 06/27/16 06:15 Metamyelocytes % 0 % 06/27/16 06:15 Myelocytes % 0 % 06/27/16 06:15 Promyelocytes % 0 % 06/27/16 06:15 Blast Cells % 0 % 06/27/16 06:15 Nucleated RBC % Not Reportable 06/27/16 06:15 Seg Neutrophils # Cardiopulmonary Technician And Eeg Tech 06/27/16 06:15 Seg Neutrophils # Man 13.7 K/mm3 (1.8-7.7) H 06/27/16 06:15 Band Neutrophils # 2.1 K/mm3 06/27/16 06:15 Lymphocytes # (Manual) 0.3 K/mm3 (1.2-5.4) L 06/27/16 06:15 Abs React Lymphs (Man) 0.0 K/mm3 06/27/16 06:15 Monocytes # (Manual) 0.0 K/mm3 (0.0-0.8) 06/27/16 06:15 Eosinophils # (Manual) 0.0 K/mm3 (0.0-0.4) 06/27/16 06:15 Basophils # (Manual) 0.0 K/mm3 (0.0-0.1) 06/27/16 06:15 Metamyelocytes # 0.0 K/mm3 06/27/16 06:15 Myelocytes # 0.0 K/mm3 06/27/16 06:15 Promyelocytes # 0.0 K/mm3 06/27/16 06:15 Blast Cells # 0.0 K/mm3 06/27/16 06:15 WBC Morphology Not Reportable 06/27/16 06:15 Hypersegmented Neuts Not Reportable 06/27/16 06:15 Hyposegmented Neuts Not Reportable 06/27/16 06:15 Hypogranular Neuts Not Reportable 06/27/16 06:15 Smudge Cells Not Reportable 06/27/16 06:15 Toxic Granulation Not Reportable 06/27/16 06:15 Toxic Vacuolation Not Reportable 06/27/16 06:15 Dohle Bodies Not Reportable 06/27/16 06:15 Pelger-Huet Anomaly Not Reportable 06/27/16 06:15 [place] Rods Not Reportable 06/27/16 06:15 Platelet Estimate Not Reportable 06/27/16 06:15 Clumped Platelets Not Reportable 06/27/16 06:15 Plt Clumps, EDTA Not Reportable 06/27/16 06:15 Large Platelets Not Reportable 06/27/16 06:15 Giant Platelets Not Reportable 06/27/16 06:15 Platelet Satelliting Not Reportable 06/27/16 06:15 Plt Morphology Comment Not Reportable 06/27/16 06:15 RBC Morphology Not Reportable 06/27/16 06:15 Dimorphic RBCs Not Reportable 06/27/16 06:15 Polychromasia Not Reportable 06/27/16 06:15 Hypochromasia Not Reportable 06/27/16 06:15 Poikilocytosis Not Reportable 06/27/16 06:15 Anisocytosis Few 06/27/16 06:15 Microcytosis Not Reportable 06/27/16 06:15 Macrocytosis Not Reportable 06/27/16 06:15 Spherocytes Not Reportable 06/27/16 06:15 Pappenheimer Bodies Not Reportable 06/27/16 06:15 Sickle Cells Not Reportable 06/27/16 06:15 Target Cells Not Reportable 06/27/16 06:15 Tear Drop Cells Not Reportable 06/27/16 06:15 Ovalocytes Not Reportable 06/27/16 06:15 Helmet Cells Not Reportable 06/27/16 06:15 Urias-[place] Bodies Not Reportable 06/27/16 06:15 [place] Rings Not Reportable 06/27/16 06:15 [place] Cells Not Reportable 06/27/16 06:15 Bite Cells Not Reportable 06/27/16 06:15 Crenated Cell Not Reportable 06/27/16 06:15 Elliptocytes Not Reportable 06/27/16 06:15 Acanthocytes (Spur) Not Reportable 06/27/16 06:15 Rouleaux Not Reportable 06/27/16 06:15 Hemoglobin C Crystals Not Reportable 06/27/16 06:15 Schistocytes Not Reportable 06/27/16 06:15 Malaria parasites Not Reportable 06/27/16 06:15 Mahesh Bodies Not Reportable 06/27/16 06:15 Hem Pathologist Commnt No 06/27/16 06:15 POC ABG pH 7.346 (7.35-7.45) L 06/26/16 14:06 POC ABG pCO2 43.4 (35-45) 06/26/16 14:06 POC ABG pO2 71 (80-105) L 06/26/16 14:06 POC ABG HCO3 23.7 06/26/16 14:06 POC ABG Total CO2 25 06/26/16 14:06 POC ABG O2 Sat 93 06/26/16 14:06 POC ABG Base Excess -2 06/26/16 14:06 FiO2 50 % 06/26/16 14:06 Sodium 146 mmol/L (137-145) H 06/28/16 08:55 Potassium 4.4 mmol/L (3.6-5.0) 06/28/16 08:55 Chloride 108.1 mmol/L (98-107) H 06/28/16 08:55 Carbon Dioxide 24 mmol/L (22-30) 06/28/16 08:55 Anion Gap 18 mmol/L 06/28/16 08:55 BUN 14 mg/dL (7-17) 06/28/16 08:55 Creatinine 1.0 mg/dL (0.7-1.2) 06/28/16 08:55 Estimated GFR > 60 ml/min 06/28/16 08:55 BUN/Creatinine Ratio 14.00 % 06/28/16 08:55 Glucose 165 mg/dL (65-100) H 06/28/16 08:55 Calcium 9.1 mg/dL (8.4-10.2) 06/28/16 08:55 Total Bilirubin 0.2 mg/dL (0.1-1.2) 06/27/16 06:15 AST 25 units/L (5-40) 06/27/16 06:15 ALT 15 units/L (7-56) 06/27/16 06:15 Alkaline Phosphatase 117 units/L (35-129) 06/27/16 06:15 Troponin T < 0.010 ng/mL (0.00-0.029) 06/26/16 13:16 NT-Pro-B Natriuret Pep 343.2 pg/mL (0-900) 06/26/16 13:16 Total Protein 7.3 g/dL (6.3-8.2) 06/27/16 06:15 Albumin 3.6 g/dL (3.9-5) L 06/27/16 06:15 Albumin/Globulin Ratio 1.0 % 06/27/16 06:15
[2016-06-28] MEDS: PERCOCET 5/325 PO PRN (20:18)
[2016-06-29] MEDS: ZOSYN/NS 4.5GM/100ML 100 ML IV SCH ×3 (05:32→21:52)
[2016-06-29 08:50] LABS: Anion Gap 18 mmol/L; Blood Urea Nitrogen 15 mg/dL (7-17); Carbon Dioxide 24 mmol/L (22-30); Chloride 104.7 mmol/L (98-107); Glucose 113 mg/dL (65-100); Potassium 3.9 mmol/L (3.6-5.0); Sodium 143 mmol/L (137-145)
[2016-06-29] MEDS: DUONEB 0.5 MG-3 MG/3 ML SOLN IH SCH ×3 (09:30→21:17)
[2016-06-29] MEDS: LOVENOX SUB-Q SCH (09:54)
[2016-06-29] MEDS: PROTONIX PO SCH (09:56)
[2016-06-29] MEDS: NEURONTIN PO SCH (09:56)
[2016-06-29] MEDS: LaMICtal PO SCH ×2 (09:56→21:58)
[2016-06-29] MEDS: ASPIRIN PO SCH (09:56)
[2016-06-29] MEDS: PROzac PO SCH (09:56)
--- NOTE | 2016-06-29 14:18 | Progress Note ---
Assessment and Plan This is 66 year old female Obese came to the emergency room at [facility] with a complaint of shortness of breath for 2 days.Patient lethergic and O2 satuaration running in low 70,s.Patient unable to give much history. Patient placed on BIPAP. Both respiratory and mental status slightly improved. Patient easily arousable.Patient given aerosol treatments and admitted to the Telemetry.Patient has history of Asthma, hypertension, GERD,Hypercholesteremia, fibromyalgia and BIpolar.Patient surgical history, Back surgery,Neck surgery and Tonsillectomy. Allergic to IVP Dye and Lisonipril.Patients smoking history, alcohol history, work history is not known at this time. 06/29/16 Patient alert, awake.Still complaining shortness of breath.Not keeping her O2. She taking it off as she like.O2 satuaration 100% on 2 litres O2.Patient going on BIPAP during night time. - Patient Problems (1) Acute respiratory failure Current Visit: Yes Status: Acute Plan to address problem: Continue BIPAP Albuterol/atrovent aerosol treatments q 6 hours. Continue solumedral. Recommend s/c Lovenox. Continue Protonix. (2) Bilateral pneumonia Current Visit: Yes Status: Acute Plan to address problem: Continue Zosyn. (3) Bronchial asthma Current Visit: Yes Status: Acute Plan to address problem: Albuterol/atrovent aerosol treatments q 6 hours. Continue solumedral. (4) Obesity (BMI 30-39.9) Current Visit: Yes Status: Acute Plan to address problem: Nutritonal consultation for weight reduction diet. (5) Sleep apnea Current Visit: Yes Status: Acute Plan to address problem: Continue BIPAP. Sleep study as outpatient. Subjective Date of service: 06/29/16 Interval history: Patient alert, awake.Still complaining shortness of breath.Not keeping her O2. She taking it off as she like.O2 satuaration 100% on 2 litres O2.Patient going on BIPAP during night time. Objective Vital Signs - 12hr 06/29/16 06/29/16 06/29/16 05:00 08:00 09:30 Temperature 97.6 F 98.0 F Pulse Rate [ 91 H Anterior Bilateral Throughout] Pulse Rate [ 99 H 87 Radial] Respiratory 20 16 Rate Respiratory 18 Rate [Anterior Bilateral Throughout] Blood Pressure 169/98 179/90 [Right Arm] O2 Sat by Pulse 99 96 Oximetry 06/29/16 06/29/16 06/29/16 09:33 09:45 12:00 Temperature 98.6 F Pulse Rate [ 89 Anterior Bilateral Throughout] Pulse Rate [ 86 Radial] Respiratory 20 Rate Respiratory 18 Rate [Anterior Bilateral Throughout] Blood Pressure 191/89 [Right Arm] O2 Sat by Pulse 100 100 Oximetry Constitutional: no acute distress, lethargic, other (Resting on BIPAP.) Eyes: non-icteric ENT: oropharynx moist Neck: supple, no JVD Ascultation: Bilateral: diminished breath sounds Cardiovascular: regular rate and rhythm Gastrointestinal: normoactive bowel sounds, soft, non-tender Integumentary: normal Extremities: no cyanosis, no edema Neurologic: non-focal exam, pupils equal and round, CN II-XII normal Psychiatric: depressed CBC and BMP: 06/28/16 08:55 06/29/16 07:14 ABG, PT/INR, D-dimer: ABG POC ABG pH 7.346 (7.35-7.45) L 06/26/16 14:06 POC ABG pCO2 43.4 (35-45) 06/26/16 14:06 POC ABG pO2 71 (80-105) L 06/26/16 14:06 POC ABG HCO3 23.7 06/26/16 14:06 POC ABG Total CO2 25 06/26/16 14:06 POC ABG O2 Sat 93 06/26/16 14:06 Abnormal lab findings: Abnormal Labs 06/27/16 06/27/16 06/28/16 06:15 06:15 08:55 WBC 16.1 H 19.2 H RBC 3.53 L 3.62 L Hgb 9.3 L 9.8 L Hct 30.0 L MCH 27 L 27 L RDW 16.1 H 15.8 H Seg Neuts % (Manual) 85.0 H Lymphocytes % (Manual) 2.0 L Seg Neutrophils # Man 13.7 H Lymphocytes # (Manual) 0.3 L Sodium Chloride Carbon Dioxide 21 L BUN 19 H Creatinine 1.3 H Glucose 151 H Albumin 3.6 L 06/28/16 06/29/16 08:55 07:14 WBC RBC Hgb Hct MCH RDW Seg Neuts % (Manual) Lymphocytes % (Manual) Seg Neutrophils # Man Lymphocytes # (Manual) Sodium 146 H Chloride 108.1 H Carbon Dioxide BUN Creatinine Glucose 165 H 113 H Albumin
--- NOTE | 2016-06-29 19:08 | Progress Note ---
Assessment and Plan Assessment and plan: Acute hypoxic respiratory failure * Continue BIPAP prn * Albuterol/atrovent aerosol treatments q 6 hours. * Continue solumedral, mikhail dose. Bilateral community-acquired pneumonia * Continue Zosyn. Acute exacerbation of severe persistent Bronchial asthma * Albuterol/atrovent aerosol treatments q 6 hours. * Continue solumedral with tappered dose Obesity (BMI 30-39.9) * Nutritonal consultation for weight reduction diet. Sleep apnea, likely * Need outpatient sleep study TRACE * likely due to dehydration, improved with iv fluid * cont to monitor h/o depression * continue prozac hypertension, uncontrolled * cont amlodipine and coreg * as needed iv hydralazine History Interval history: Patient seen and examined. Medical records and medication list reviewed. No acute event overnight noted by the RN. Breathing improved but still gets worse with ambulation. tolerating diet, denies any chest pain Hospitalist Physical - Physical exam Narrative exam: GENERAL: obese AAF lying on bed with BIPAP. appears sleepy HEENT: Normocephalic. Atraumatic. No conjunctival congestion or icterus. Patient has dry mucous membranes. NECK: Supple. Trachea midline. CHEST/LUNGS: diminished BS auscultated bilaterally, on BiPAP. No wheezes crackles or rhonchi. HEART/CARDIOVASCULAR: Regular in rate and rhythm. S1 and S2 positive. ABDOMEN: Abdomen is soft, nontender. Patient has normal bowel sounds. SKIN: There is no rash. Warm and dry. NEURO: No focal motor deficit. MUSCULOSKELETAL: No joint effusion or tenderness. EXTRIMITY: No edema, no cyanosis or clubbing. - Constitutional Vitals: Temp Pulse Resp BP Pulse Ox 98.6 F 96 H 18 191/89 100 06/29/16 12:00 06/29/16 16:05 06/29/16 16:05 06/29/16 12:00 06/29/16 12:00 Results - Labs CBC & Chem 7: 06/28/16 08:55 06/29/16 07:14 Labs: Laboratory Last Values WBC 19.2 K/mm3 (4.5-11.0) H 06/28/16 08:55 RBC 3.62 M/mm3 (3.65-5.03) L 06/28/16 08:55 Hgb 9.8 gm/dl (10.1-14.3) L 06/28/16 08:55 Hct 30.9 % (30.3-42.9) 06/28/16 08:55 MCV 85 fl (79-97) 06/28/16 08:55 MCH 27 pg (28-32) L 06/28/16 08:55 MCHC 32 % (30-34) 06/28/16 08:55 RDW 15.8 % (13.2-15.2) H 06/28/16 08:55 Plt Count 392 K/mm3 (140-440) 06/28/16 08:55 Lymph % (Auto) Shipping Point Inspector 06/27/16 06:15 [place] % (Auto) Shipping Point Inspector 06/27/16 06:15 Eos % (Auto) Shipping Point Inspector 06/27/16 06:15 Baso % (Auto) Shipping Point Inspector 06/27/16 06:15 Lymph # Shipping Point Inspector 06/27/16 06:15 [place] # Shipping Point Inspector 06/27/16 06:15 Eos # Shipping Point Inspector 06/27/16 06:15 Baso # Shipping Point Inspector 06/27/16 06:15 Add Manual Diff Complete 06/27/16 06:15 Total Counted 100 06/27/16 06:15 Seg Neutrophils % Shipping Point Inspector 06/27/16 06:15 Seg Neuts % (Manual) 85.0 % (40.0-70.0) H 06/27/16 06:15 Band Neutrophils % 13.0 % 06/27/16 06:15 Lymphocytes % (Manual) 2.0 % (13.4-35.0) L 06/27/16 06:15 Reactive Lymphs % (Man) 0 % 06/27/16 06:15 Monocytes % (Manual) 0 % (0.0-7.3) 06/27/16 06:15 Eosinophils % (Manual) 0 % (0.0-4.3) 06/27/16 06:15 Basophils % (Manual) 0 % (0.0-1.8) 06/27/16 06:15 Metamyelocytes % 0 % 06/27/16 06:15 Myelocytes % 0 % 06/27/16 06:15 Promyelocytes % 0 % 06/27/16 06:15 Blast Cells % 0 % 06/27/16 06:15 Nucleated RBC % Not Reportable 06/27/16 06:15 Seg Neutrophils # Shipping Point Inspector 06/27/16 06:15 Seg Neutrophils # Man 13.7 K/mm3 (1.8-7.7) H 06/27/16 06:15 Band Neutrophils # 2.1 K/mm3 06/27/16 06:15 Lymphocytes # (Manual) 0.3 K/mm3 (1.2-5.4) L 06/27/16 06:15 Abs React Lymphs (Man) 0.0 K/mm3 06/27/16 06:15 Monocytes # (Manual) 0.0 K/mm3 (0.0-0.8) 06/27/16 06:15 Eosinophils # (Manual) 0.0 K/mm3 (0.0-0.4) 06/27/16 06:15 Basophils # (Manual) 0.0 K/mm3 (0.0-0.1) 06/27/16 06:15 Metamyelocytes # 0.0 K/mm3 06/27/16 06:15 Myelocytes # 0.0 K/mm3 06/27/16 06:15 Promyelocytes # 0.0 K/mm3 06/27/16 06:15 Blast Cells # 0.0 K/mm3 06/27/16 06:15 WBC Morphology Not Reportable 06/27/16 06:15 Hypersegmented Neuts Not Reportable 06/27/16 06:15 Hyposegmented Neuts Not Reportable 06/27/16 06:15 Hypogranular Neuts Not Reportable 06/27/16 06:15 Smudge Cells Not Reportable 06/27/16 06:15 Toxic Granulation Not Reportable 06/27/16 06:15 Toxic Vacuolation Not Reportable 06/27/16 06:15 Dohle Bodies Not Reportable 06/27/16 06:15 Pelger-Huet Anomaly Not Reportable 06/27/16 06:15 Gordon Rods Not Reportable 06/27/16 06:15 Platelet Estimate Not Reportable 06/27/16 06:15 Clumped Platelets Not Reportable 06/27/16 06:15 Plt Clumps, EDTA Not Reportable 06/27/16 06:15 Large Platelets Not Reportable 06/27/16 06:15 Giant Platelets Not Reportable 06/27/16 06:15 Platelet Satelliting Not Reportable 06/27/16 06:15 Plt Morphology Comment Not Reportable 06/27/16 06:15 RBC Morphology Not Reportable 06/27/16 06:15 Dimorphic RBCs Not Reportable 06/27/16 06:15 Polychromasia Not Reportable 06/27/16 06:15 Hypochromasia Not Reportable 06/27/16 06:15 Poikilocytosis Not Reportable 06/27/16 06:15 Anisocytosis Few 06/27/16 06:15 Microcytosis Not Reportable 06/27/16 06:15 Macrocytosis Not Reportable 06/27/16 06:15 Spherocytes Not Reportable 06/27/16 06:15 Pappenheimer Bodies Not Reportable 06/27/16 06:15 Sickle Cells Not Reportable 06/27/16 06:15 Target Cells Not Reportable 06/27/16 06:15 Tear Drop Cells Not Reportable 06/27/16 06:15 Ovalocytes Not Reportable 06/27/16 06:15 Helmet Cells Not Reportable 06/27/16 06:15 [place] Bodies Not Reportable 06/27/16 06:15 [place] Rings Not Reportable 06/27/16 06:15 Brady Cells Not Reportable 06/27/16 06:15 Bite Cells Not Reportable 06/27/16 06:15 Crenated Cell Not Reportable 06/27/16 06:15 Elliptocytes Not Reportable 06/27/16 06:15 Acanthocytes (Spur) Not Reportable 06/27/16 06:15 Rouleaux Not Reportable 06/27/16 06:15 Hemoglobin C Crystals Not Reportable 06/27/16 06:15 Schistocytes Not Reportable 06/27/16 06:15 Malaria parasites Not Reportable 06/27/16 06:15 Mahesh Bodies Not Reportable 06/27/16 06:15 Hem Pathologist Commnt No 06/27/16 06:15 POC ABG pH 7.346 (7.35-7.45) L 06/26/16 14:06 POC ABG pCO2 43.4 (35-45) 06/26/16 14:06 POC ABG pO2 71 (80-105) L 06/26/16 14:06 POC ABG HCO3 23.7 06/26/16 14:06 POC ABG Total CO2 25 06/26/16 14:06 POC ABG O2 Sat 93 06/26/16 14:06 POC ABG Base Excess -2 06/26/16 14:06 FiO2 50 % 06/26/16 14:06 Sodium 143 mmol/L (137-145) 06/29/16 07:14 Potassium 3.9 mmol/L (3.6-5.0) 06/29/16 07:14 Chloride 104.7 mmol/L (98-107) 06/29/16 07:14 Carbon Dioxide 24 mmol/L (22-30) 06/29/16 07:14 Anion Gap 18 mmol/L 06/29/16 07:14 BUN 15 mg/dL (7-17) 06/29/16 07:14 Creatinine 1.0 mg/dL (0.7-1.2) 06/29/16 07:14 Estimated GFR > 60 ml/min 06/29/16 07:14 BUN/Creatinine Ratio 15.00 % 06/29/16 07:14 Glucose 113 mg/dL (65-100) H 06/29/16 07:14 POC Glucose 189 (70-105) H 06/29/16 15:42 Calcium 9.0 mg/dL (8.4-10.2) 06/29/16 07:14 Total Bilirubin 0.2 mg/dL (0.1-1.2) 06/27/16 06:15 AST 25 units/L (5-40) 06/27/16 06:15 ALT 15 units/L (7-56) 06/27/16 06:15 Alkaline Phosphatase 117 units/L (35-129) 06/27/16 06:15 Troponin T < 0.010 ng/mL (0.00-0.029) 06/26/16 13:16 NT-Pro-B Natriuret Pep 343.2 pg/mL (0-900) 06/26/16 13:16 Total Protein 7.3 g/dL (6.3-8.2) 06/27/16 06:15 Albumin 3.6 g/dL (3.9-5) L 06/27/16 06:15 Albumin/Globulin Ratio 1.0 % 06/27/16 06:15
[2016-06-29] MEDS: NORVASC PO SCH (21:57)
[2016-06-29] MEDS: COREG PO SCH (21:57)
[2016-06-29] MEDS ORDERED: COREG PO SCH ×2 (22:00)
[2016-06-29] MEDS ORDERED: NON-FORMULARY (Rosuvastatin (Nf) 5 MG) PO SCH (22:00)
[2016-06-29] MEDS: PERCOCET 5/325 PO PRN (22:01)
[2016-06-30] MEDS: ZOSYN/NS 4.5GM/100ML 100 ML IV SCH ×2 (05:03→16:26)
[2016-06-30] MEDS: DUONEB 0.5 MG-3 MG/3 ML SOLN IH SCH ×3 (08:28→14:44)
[2016-06-30] MEDS: LOVENOX SUB-Q SCH (09:27)
[2016-06-30] MEDS: ASPIRIN PO SCH (09:29)
[2016-06-30] MEDS: PROzac PO SCH (09:29)
[2016-06-30] MEDS: NEURONTIN PO SCH (09:29)
[2016-06-30] MEDS: LaMICtal PO SCH (09:30)
[2016-06-30] MEDS: COREG PO SCH (09:30)
[2016-06-30] MEDS: PROTONIX PO SCH (09:30)
[2016-06-30] MEDS: NORVASC PO SCH (09:32)
--- NOTE | 2016-06-30 10:20 | Progress Note ---
Assessment and Plan This is 66 year old female Obese came to the emergency room at [facility] with a complaint of shortness of breath for 2 days.Patient lethergic and O2 satuaration running in low 70,s.Patient unable to give much history. Patient placed on BIPAP. Both respiratory and mental status slightly improved. Patient easily arousable.Patient given aerosol treatments and admitted to the Telemetry.Patient has history of Asthma, hypertension, GERD,Hypercholesteremia, fibromyalgia and BIpolar.Patient surgical history, Back surgery,Neck surgery and Tonsillectomy. Allergic to IVP Dye and Lisonipril.Patients smoking history, alcohol history, work history is not known at this time. 06/29/16 Patient alert, awake.Still complaining shortness of breath.Not keeping her O2. She taking it off as she like.O2 satuaration 98% on 2 litres O2.Patient going on BIPAP during night time. 06/30/16 Patient alert, awake. Says breathing better.O2 satuaration 93% on 3 litres O2. Obtaining chest xray PA and lateral and ABGs on room air. If those results are Ok . Patient can go home pulmonary point of view. Recommend pulmonary follow up with me in 1 or 2 weeks as out patient. - Patient Problems (1) Acute respiratory failure Current Visit: Yes Status: Acute Plan to address problem: Continue BIPAP Albuterol/atrovent aerosol treatments q 6 hours. Continue solumedral. Recommend s/c Lovenox. Continue Protonix. (2) Bilateral pneumonia Current Visit: Yes Status: Acute Plan to address problem: Continue Zosyn. (3) Bronchial asthma Current Visit: Yes Status: Acute Plan to address problem: Albuterol/atrovent aerosol treatments q 6 hours. Continue solumedral. (4) Obesity (BMI 30-39.9) Current Visit: Yes Status: Acute Plan to address problem: Nutritonal consultation for weight reduction diet. (5) Sleep apnea Current Visit: Yes Status: Acute Plan to address problem: Continue BIPAP. Sleep study as outpatient. Subjective Date of service: 06/30/16 Interval history: Patient alert, awake. Says breathing better.O2 satuaration 93% on 3 litres O2. Obtaining chest xray PA and lateral and ABGs on room air. If those results are Ok . Patient can go home pulmonary point of view. Recommend pulmonary follow up with me in 1 or 2 weeks as out patient. Objective Vital Signs - 12hr 06/30/16 06/30/16 06/30/16 00:22 00:30 04:00 Temperature 98.2 F Pulse Rate 70 Pulse Rate [ Anterior Bilateral Throughout] Pulse Rate [ 85 86 Radial] Respiratory 18 Rate Respiratory Rate [Anterior Bilateral Throughout] Blood Pressure 159/91 [Left Arm] Blood Pressure 195/93 [Right Arm] O2 Sat by Pulse 99 Oximetry 06/30/16 06/30/16 06/30/16 07:54 08:29 08:31 Temperature 98.0 F Pulse Rate Pulse Rate [ 98 H Anterior Bilateral Throughout] Pulse Rate [ 92 H Radial] Respiratory 20 Rate Respiratory 18 Rate [Anterior Bilateral Throughout] Blood Pressure [Left Arm] Blood Pressure 142/70 [Right Arm] O2 Sat by Pulse 97 98 Oximetry 06/30/16 08:44 Temperature Pulse Rate Pulse Rate [ 94 H Anterior Bilateral Throughout] Pulse Rate [ Radial] Respiratory Rate Respiratory 20 Rate [Anterior Bilateral Throughout] Blood Pressure [Left Arm] Blood Pressure [Right Arm] O2 Sat by Pulse Oximetry Constitutional: no acute distress, alert Eyes: non-icteric ENT: oropharynx moist Neck: supple, no JVD Ascultation: Bilateral: diminished breath sounds Cardiovascular: regular rate and rhythm Gastrointestinal: normoactive bowel sounds, soft, non-tender Integumentary: normal Extremities: no cyanosis, no edema Neurologic: non-focal exam, pupils equal and round, CN II-XII normal Psychiatric: depressed CBC and BMP: 06/28/16 08:55 06/29/16 07:14 ABG, PT/INR, D-dimer: ABG POC ABG pH 7.346 (7.35-7.45) L 06/26/16 14:06 POC ABG pCO2 43.4 (35-45) 06/26/16 14:06 POC ABG pO2 71 (80-105) L 06/26/16 14:06 POC ABG HCO3 23.7 06/26/16 14:06 POC ABG Total CO2 25 06/26/16 14:06 POC ABG O2 Sat 93 06/26/16 14:06 Abnormal lab findings: Abnormal Labs 06/27/16 06/27/16 06/28/16 06:15 06:15 08:55 WBC 16.1 H 19.2 H RBC 3.53 L 3.62 L Hgb 9.3 L 9.8 L Hct 30.0 L MCH 27 L 27 L RDW 16.1 H 15.8 H Seg Neuts % (Manual) 85.0 H Lymphocytes % (Manual) 2.0 L Seg Neutrophils # Man 13.7 H Lymphocytes # (Manual) 0.3 L Sodium Chloride Carbon Dioxide 21 L BUN 19 H Creatinine 1.3 H Glucose 151 H POC Glucose Albumin 3.6 L 06/28/16 06/29/16 06/29/16 08:55 07:14 15:42 WBC RBC Hgb Hct MCH RDW Seg Neuts % (Manual) Lymphocytes % (Manual) Seg Neutrophils # Man Lymphocytes # (Manual) Sodium 146 H Chloride 108.1 H Carbon Dioxide BUN Creatinine Glucose 165 H 113 H POC Glucose 189 H Albumin 06/29/16 21:05 WBC RBC Hgb Hct MCH RDW Seg Neuts % (Manual) Lymphocytes % (Manual) Seg Neutrophils # Man Lymphocytes # (Manual) Sodium Chloride Carbon Dioxide BUN Creatinine Glucose POC Glucose 193 H Albumin
--- NOTE | 2016-06-30 11:43 | Discharge Summary ---
Providers - Providers Date of Admission: 06/26/16 15:07 Date of discharge: 06/30/16 Attending physician: ALONA WALDRON 06/26/16 15:17 Consult to Physician [CONS] Urgent Consulting Provider: ROLLY ROMERO Reason For Exam: respiratory failure Place consult to:: cc loan review officer Notified:: y Was contact made?: Yes If yes, spoke with:: naila souza Time called:: 16:05 Primary care physician: MEDICAL OFFICE SCHEDULER Hospitalization Condition: Serious Hospital course: 66-year-old female with h/o asthma presented to the ER complaining of worsening shortness of breath and cough. She was noted to be severely hypoxic by EMS, O2 was at 70s. She was placed on BiPAP and continued on iv solumedrol, antibiotic and periodic breathing treatment. She was eventually weaned off from BiPAP and steroid was tapered off. She was clinically improved and discharged home in stable condition. Discharge Diagnosis and management per problem: Acute hypoxic respiratory failure * secondary to COPD exacerbation, resolved Bilateral community-acquired pneumonia * Continue abx. Acute exacerbation of severe persistent Bronchial asthma * improved Obesity (BMI 30-39.9) * Nutritional consultation for weight reduction diet. Sleep apnea, likely * Need outpatient sleep study TRACE * likely due to dehydration, improved with iv fluid h/o depression * continue prozac hypertension, uncontrolled * cont amlodipine and coreg Disposition: DISCHARGED TO HOME OR SELFCARE Time spent for discharge: 32 minutes Core Measure Documentation - Palliative Care Palliative Care/ Comfort Measures: Not Applicable - Core Measures Any of the following diagnoses?: none Exam - Physical Exam Narrative exam: GENERAL: obese AAF lying on bed no distreaa HEENT: Normocephalic. Atraumatic. No conjunctival congestion or icterus. Patient has dry mucous membranes. NECK: Supple. Trachea midline. CHEST/LUNGS: diminished BS auscultated bilaterally. No wheezes crackles or rhonchi. HEART/CARDIOVASCULAR: Regular in rate and rhythm. S1 and S2 positive. ABDOMEN: Abdomen is soft, nontender. Patient has normal bowel sounds. SKIN: There is no rash. Warm and dry. NEURO: No focal motor deficit. MUSCULOSKELETAL: No joint effusion or tenderness. EXTRIMITY: No edema, no cyanosis or clubbing. - Constitutional Vitals: Temp Pulse Resp BP Pulse Ox 98.0 F 94 H 20 142/70 98 06/30/16 07:54 06/30/16 08:44 06/30/16 08:44 06/30/16 07:54 06/30/16 08:31 Plan Activity: advance as tolerated Weight Bearing Status: Weight Bear as Tolerated Diet: low cholesterol, low salt Follow up with: PRIMARY CARE, [Primary Care Provider] - 3-5 Days Prescriptions: Ipratropium/Albuterol Sulfate [Combivent Respimat] 1 spray IH QID #30 mist.inhal Carvedilol [Coreg] 6.25 mg PO BID #60 tablet predniSONE [Deltasone] 40 mg PO QDAY #5 tab Levofloxacin [Levaquin] 750 mg PO QDAY #5 tablet
--- NOTE | 2016-06-30 13:31 | XRay Report ---
Chest 2 views: Compared to 06/26/16. History: Followup of pneumonia. Findings: Cardiomegaly. Trachea is midline. No consolidation, pneumothorax or pleural effusion. Previously noted pulmonary vascular congestion and airspace opacities have cleared. Impression: Cardiomegaly. No acute lung changes.
[2016-06-30 14:58] LABS: ISTAT Base Excess 2; ISTAT DEVICE 0; ISTAT PCO2 39.6 (35-45); ISTAT PH 7.425 (7.35-7.45); ISTAT PO2 66 (80-105); ISTAT SO2 93; ISTAT TCO2 27
[2016-06-30 17:59] VITALS: BP 140/71
--- NOTE | 2016-07-04 07:45 | Query-Infection ---
"Brook Mitchell Sang Date:____07/04/16 Cook Tortilla/CDS:____Favian / [place] Phone#:___[phone] Exercise your independent professional judgment when responding to this query. Questions asked do not imply a particular answer is desired or expected. We greatly appreciate your clarification on this issue. Clinical Documentation States: 66 year old female was admitted on 06/27/16. The Patient was diagnosed with bilateral community acquired pneumonia. WBC: 15.2 Pulse: 91 Respiratory rate: 22 IV zosyn was given Clinical findings show: (please check applicable parameters) Infection, known /suspected, with some of the following indicators; Specify the infection: 3 General parameters [ ] Fever (core temp >38.30C or 100.40F) [ ] Hypothermia (core temp <36C) [x] Heart rate >90 bpm [x] Tachypnea: >20 bpm or pCO2 < 32 mmHg [ ] Altered mental status [ ] Significant edema / +ve fluid balance (>20 ml/kg 24 h) [ ] Hyperglycemia (Bl. glucose >110 mg/dl) w/o diabetes Inflammatory parameters [x] Leukocytosis (white blood cell count >12,000/l) [ ] Leukopenia (white blood cell count <4,000/l) [ ] Bandemia (immature WBC > 10%) [ ] Leucocyte Left Shift [ ] Plasma procalcitonin>2 SD above the normal value Hemodynamic and tissue perfusion parameters [ ] Arterial hypotension(SBP <90 mmHg, MAP <70 mmHg,or a SBP drop >40 mmHg in adults) [ ] Hyperlactatemia (>3 mmol/l) [ ] Anion Gap (> 11mEG/l) [ ] Decreased capillary refill or mottling Organ dysfunction parameters [ ] Arterial hypoxemia (PaO2/FIO2 <300) [ ] Creatinine increase =0.5 mg/dl [ ] Acute oliguria (urine output <0.5 ml | kg |h or 45 mM/l for at least 2 hrs) [ ] Coagulation abnormalities (INR >1.5 or activated partial thromboplastin time >60 s) [ ] Ileus (absent brett wel sounds) [ ] Thrombocytopenia (platelet count <100,000/l) [ ] Hyperbilirubinemia (plasma total bilirubin >4 mg/dl) According to the clinical indications above, can Bacteremia be further specified? If so, please indicate below and in your Progress Notes and/ or Discharge Summary. Indicate if the condition was present on admission. PHYSICIAN RESPONSE: [X ] Sepsis [ ] Severe Sepsis [ ] Septic Shock [ ] Septicemia [ ] Sepsis now resolved [ ] SIRS due to non-infectious cause with organ dysfunction [ ] SIRS due to non-infectious cause without organ dysfunction [ ] Other: [ ] Comment/Explanation: Present on Admission: [ X] Yes (Y) [ ] Clinically undeterminable (W) [ ] No (N) [ ] Ruled Out Please also document response in your Progress Notes and/or Discharge Summary and indicate if the condition was present on admission Notes: SIRS/ SIRS WITH ORGAN DYSFUNCTION Systemic inflammatory response syndrome (SIRS) generally refers to the systemic response to trauma/fernandes or other insult such as Acute Myocardial Infarction, Acute Pancreatitis, and Major Surgery with symptoms including fever, tachycardia , tachypnea, and leukocytosis (1). BACTEREMIA Presence of viable bacteria in the circulating blood (2). This term is reserved for patients that do not manifest above SIRS response. SEPTICEMIA Generally refers to a systemic disease associated with the presence of pathological microorganisms or toxins in the blood, which can include bacteria, viruses, fungi or other organisms (1). SEPSIS Generally refers to SIRS due infection (1). SEVERE SEPSIS Generally refers to sepsis associated with acute organ dysfunction (1). SEPTIC SHOCK Generally refers to circulatory failure associated with severe sepsis (2), and defined as hypotension or hypoperfusion despite adequate fluid resuscitation (1 hour) (3). REFERENCES: 1. [place] [employer]/Society of Critical Care Medicine Consensus Conference. Definitions for sepsis and organ failure and guidelines for the use of innovative therapies in sepsis. Critical Care Med 1992;20:864 - 74. 2. Paul hayden MM, Charlie MP, Henry HODGE, Paulino E, Pineda D, Nadir D, Regan J, Rena SM , Wayne JL, Jorge G; International Sepsis Definitions Conference. 2001 SCCM/ESICM/ACCP/ATS/SIS International Sepsis Definitions Conference. Intensive Care Med. 2002;29(4):530-8. Epub 2002Aug 27. Review. PubMed PMID:[id number] 3. ICD-9-CM Official Guidelines for Coding and Reporting 4. Medscape Drugs, Diseases and Procedures references 5. [employer] Textbook of Internal Medicine. 18th Edition MTDD"
== END 2016-06-30 19:18 | disposition home or self-care (01) | DRG 871 ==
LOC: ED 12:36 → CC1 15:07 → 4A 17:47
PROVIDERS: ADMIT Internal Medicine; ATTEND Internal Medicine
PROC: 5A09357 Assistance with Respiratory Ventilation, Less than 24 Consecutive Hours, Continuous Positive Airway Pressure (ICD-10-PCS; principal; 2016-06-26)
PROC: 4A033R1 Measurement of Arterial Saturation, Peripheral, Percutaneous Approach (ICD-10-PCS; 2016-06-26)
PROC: 4A033R1 Measurement of Arterial Saturation, Peripheral, Percutaneous Approach (ICD-10-PCS; 2016-06-30)
DX: A41.9 Sepsis, unspecified organism (principal); J18.9 Pneumonia, unspecified organism; J96.01 Acute respiratory failure with hypoxia; J45.51 Severe persistent asthma with (acute) exacerbation; N17.9 Acute kidney failure, unspecified; E66.9 Obesity, unspecified; I10 Essential (primary) hypertension; J44.9 Chronic obstructive pulmonary disease, unspecified; M79.7 Fibromyalgia; E78.5 Hyperlipidemia, unspecified; I95.9 Hypotension, unspecified; G62.9 Polyneuropathy, unspecified; F31.9 Bipolar disorder, unspecified; E78.00 Pure hypercholesterolemia, unspecified; K21.9 Gastro-esophageal reflux disease without esophagitis; G47.30 Sleep apnea, unspecified; E86.0 Dehydration; Z68.38 Body mass index [BMI] 38.0-38.9, adult; Z99.81 Dependence on supplemental oxygen; Z98.890 Other specified postprocedural states; Z90.89 Acquired absence of other organs; Z87.891 Personal history of nicotine dependence; Z82.49 Family history of ischemic heart disease and other diseases of the circulatory system; Z79.899 Other long term (current) drug therapy; Z88.8 Allergy status to other drugs, medicaments and biological substances; Z91.041 Radiographic dye allergy status
CPT/HCPCS: 36415; 36600; 71010; 71020; 80048; 80053; 82803; 82962; 83880; 84484; 85007; 85025; 85027; 87040; 93005; 93010; 94640; 94660; 94760; A9270-GY; J1650; J2543; J2930; J7042

== ENCOUNTER 2016-07-14 18:08 | Emergency (ER) | payer MEDICARE ==
[2016-07-14 18:15] VITALS: BP 197/102
[2016-07-14] MEDS ORDERED: DUONEB 0.5 MG-3 MG/3 ML SOLN IH ONE (18:21)
[2016-07-14 18:35] LABS: Eosinophils % (Auto) 8.2 % (0.0-4.3); Hematocrit 32.2 % (30.3-42.9); Hemoglobin 10.2 gm/dl (10.1-14.3); Mean Corpuscular HGB Conc 32 % (30-34); Mean Corpuscular Hemoglobin 27 pg (28-32); Mean Corpuscular Volume 85 fl (79-97); Platelet Count 336 K/mm3 (140-440); Red Blood Count 3.79 M/mm3 (3.65-5.03); Red Cell Distribution Width 17.2 % (13.2-15.2); White Blood Count 5.7 K/mm3 (4.5-11.0)
[2016-07-14 18:56] LABS: Anion Gap 17 mmol/L; Blood Urea Nitrogen 13 mg/dL (7-17); Calcium 8.9 mg/dL (8.4-10.2); Carbon Dioxide 28 mmol/L (22-30); Chloride 103.4 mmol/L (98-107); Glucose 105 mg/dL (65-100); Potassium 4.4 mmol/L (3.6-5.0); Sodium 144 mmol/L (137-145)
--- NOTE | 2016-07-15 06:17 | ED Elopement Review ---
ED Pt Elopement review - Results review Lab results: Laboratory Tests 07/14/16 07/14/16 18:23 18:23 WBC 5.7 RBC 3.79 Hgb 10.2 Hct 32.2 MCV 85 MCH 27 L MCHC 32 RDW 17.2 H Plt Count 336 Lymph % (Auto) 21.8 [place] % (Auto) 7.9 H Eos % (Auto) 8.2 H Baso % (Auto) 1.0 Lymph # 1.2 [place] # 0.4 Eos # 0.5 H Baso # 0.1 Seg Neutrophils % 61.1 Seg Neutrophils # 3.5 Sodium 144 Potassium 4.4 Chloride 103.4 Carbon Dioxide 28 Anion Gap 17 BUN 13 Creatinine 1.0 Estimated GFR > 60 BUN/Creatinine Ratio 13.00 Glucose 105 H Calcium 8.9 Troponin T < 0.010 - Call Back decision Pt Call Back Decision: Pt to F/U with PMD (Hypertension, return to ED if symptoms remain or worsen)
--- NOTE | 2016-07-15 08:10 | XRay Report ---
Chest 2 views. Findings: The heart and pulmonary vessels are normal. The lungs are clear. There is no pleural fluid. Impression: No acute findings.
== END 2016-07-14 20:02 | disposition left against medical advice (07) ==
LOC: ED 18:08
DX: R06.02 Shortness of breath (principal); R06.2 Wheezing; Z53.21 Procedure and treatment not carried out due to patient leaving prior to being seen by health care provider
CPT/HCPCS: 36415; 71020; 80048; 84484; 85025; 93005; 93010; 94640